=== PATIENT | female | born 1965 | race Hispanic/Latino ===

== ENCOUNTER 2024-05-01 09:24 | Emergency (ER) | payer OTHER ==
[~2024-05-01] VITALS: Ht 160 cm; Wt 84.4 kg
[2024-05-01 09:29] VITALS: PULSE 75; RESP 16; TEMP 97.7; O2SAT 98
[2024-05-01] MEDS ORDERED: KETOROLAC TROME10 MG PO (10:23)
[2024-05-01] MEDS: KETOROLAC TROMETHAMINE 30 MG/ML VIAL IM STA (11:29)
[2024-05-01] MEDS: TRAMADOL HCL 50 MG TAB PO ONE (11:30)
== END 2024-05-01 11:38 | disposition home or self-care (01) ==
LOC: FSED 09:38
DX: B02.29 Other postherpetic nervous system involvement (principal); I10 Essential (primary) hypertension; E11.9 Type 2 diabetes mellitus without complications; E78.5 Hyperlipidemia, unspecified
CPT/HCPCS: 99283; J1885

== ENCOUNTER 2024-05-08 15:18 | Emergency (ER) | payer OTHER ==
[~2024-05-08] VITALS: Ht 160 cm; Wt 84.9 kg
[~2024-05-08 15:18] MED LIST: KETOROLAC TROME10 MG PO
[2024-05-08] MEDS: SODIUM CHLORIDE 0.9% 1000ML 1,000 ML IV STA (17:12)
[2024-05-08] MEDS: KETOROLAC TROMETHAMINE 30 MG/ML VIAL IV STA (17:42)
[2024-05-08 17:50] VITALS: PULSE 72; RESP 16; TEMP 98.1; O2SAT 98
[2024-05-08] MEDS ORDERED: VALACYCLOVIR1000 MG PO (19:09)
[2024-05-08] MEDS ORDERED: VALACYCLOVIR500 MG PO (19:11)
[2024-05-08] MEDS ORDERED: GABAPENTIN300 MG PO (19:12)
[2024-05-08] MEDS ORDERED: JARDIANCE25 MG (19:19)
[2024-05-08] MEDS ORDERED: BENICAR20 MG PO (19:19)
[2024-05-08] MEDS ORDERED: GLIPIZIDE5 MG PO (19:19)
[2024-05-08] MEDS ORDERED: LOVASTATIN40 MG (19:19)
[2024-05-08] MEDS ORDERED: METFORMIN HCL500 M2 PO (19:19)
[2024-05-08] MEDS ORDERED: TRAMADOL HCL25 MG (19:19)
[2024-05-08] MEDS ORDERED: PROTONIX20 MG PO (19:19)
[2024-05-08] MEDS ORDERED: MECLIZINE HCL12.5 MG PO (19:19)
[2024-05-08] MEDS ORDERED: NEURONTIN100 MG PO (19:19)
[2024-05-08] MEDS ORDERED: ALPRAZOLAM0.25 M1 PO (19:19)
== END 2024-05-08 19:28 | disposition home or self-care (01) ==
LOC: FSED 15:22
DX: B02.29 Other postherpetic nervous system involvement (principal); B34.9 Viral infection, unspecified; E11.65 Type 2 diabetes mellitus with hyperglycemia; I10 Essential (primary) hypertension; E78.5 Hyperlipidemia, unspecified
CPT/HCPCS: 80053; 81003; 85025; 96360; 96374; 99284; J1885; J7030

== ENCOUNTER 2024-05-18 10:41 | Emergency (ER) | payer OTHER ==
[~2024-05-18] VITALS: Ht 160 cm; Wt 84.8 kg
[~2024-05-18 10:41] MED LIST changes: +ALPRAZOLAM0.25 M1 PO; +BENICAR20 MG PO; +GABAPENTIN300 MG PO; +GLIPIZIDE5 MG PO; +JARDIANCE25 MG; +LOVASTATIN40 MG; +MECLIZINE HCL12.5 MG PO; +METFORMIN HCL500 M2 PO; +NEURONTIN100 MG PO; +PROTONIX20 MG PO; +TRAMADOL HCL25 MG; +VALACYCLOVIR1000 MG PO; +VALACYCLOVIR500 MG PO
[2024-05-18 10:44] VITALS: TEMP 97
[2024-05-18 11:31] LABS: BASOPHILS # (AUTO) 0.1 (0.0-0.1); EOSINOPHILS % 0.6 % (0.0-6.0); HEMATOCRIT 44.1 % (34.2-44.1); HEMOGLOBIN 13.7 g/dL (12.0-16.0); LYMPHOCYTES # (AUTO) 1.7 (1.0-3.2); LYMPHOCYTES % 34.4 % (18.0-39.1); MEAN CORPUSCULAR HEMOGLOBIN 25.8 pg (28-32); MEAN CORPUSCULAR HGB CONC 31.1 g/dL (31-35); MEAN CORPUSCULAR VOLUME 83.1 fL (81-99); MONOCYTES # (AUTO) 0.3 (0.2-0.8); MONOCYTES % 5.4 % (4.4-11.3); NEUTROPHILS # (AUTO) 2.8 (2.1-6.9); PLATELET COUNT 240 x10e3/uL (140-360); RED BLOOD COUNT 5.31 x10e6/uL (3.6-5.1); RED CELL DISTRIBUTION WIDTH 15.3 % (11.7-14.4); WHITE BLOOD COUNT 4.85 x10e3/uL (4.8-10.8)
[2024-05-18 11:45] LABS: ALANINE AMINOTRANSFERASE 15 IU/L (0-55); ALBUMIN 4.6 g/dL (3.5-5.0); ALBUMIN/GLOBULIN RATIO 1.2 (0.8-2.0); ALKALINE PHOSPHATASE 63 IU/L (40-150); ANION GAP 16.9 mmol/L (8-16); BILIRUBIN,TOTAL 0.5 mg/dL (0.2-1.2); BLOOD UREA NITROGEN 27 mg/dL (7-26); BUN/CREATININE RATIO 24 (6-25); CALCIUM 9.9 mg/dL (8.4-10.2); CARBON DIOXIDE 24 mmol/L (22-29); CHLORIDE 101 mmol/L (98-107); CREATINE KINASE 29 IU/L (29-168); CREATININE, SERUM 1.11 mg/dL (0.57-1.11); EST GLOMERULAR FILTRATION RATE 58 ML/MIN (>=60); GLUCOSE 160 mg/dL (74-118); POTASSIUM 3.9 mmol/L (3.5-5.1); SODIUM 138 mmol/L (136-145); TOTAL PROTEIN 8.3 g/dL (6.5-8.1)
[2024-05-18 11:58] LABS: TROPONIN I < 0.001 ng/mL (0-0.300)
[2024-05-18] MEDS ORDERED: IOPAMIDOL 370 MG/ML 100 ML INFUS..BTL INJ ONE (12:10)
[2024-05-18 14:21] LABS: COVID 19 ANTIGEN NOT DETECTED (NEGATIVE)
[2024-05-18 16:15] LABS: TROPONIN I 0.008 ng/mL (0-0.300)
[2024-05-18 17:05] VITALS: PULSE 66; RESP 15
[2024-05-18 17:46] VITALS: BP 123/62; PULSE 66; RESP 16; O2SAT 100
== END 2024-05-18 17:51 | disposition home or self-care (01) ==
LOC: ER 11:01
DX: R06.02 Shortness of breath (principal); R07.89 Other chest pain; E11.65 Type 2 diabetes mellitus with hyperglycemia; I10 Essential (primary) hypertension; E78.5 Hyperlipidemia, unspecified; Z11.52 Encounter for screening for COVID-19; R94.31 Abnormal electrocardiogram [ECG] [EKG]; F17.210 Nicotine dependence, cigarettes, uncomplicated
CPT/HCPCS: 0223U; 36415; 71260; 80053; 82550; 84484; 85025; 93005; 93970; 99284; Q9967